=== PATIENT | female | born 1950 | race Caucasian/White ===

== ENCOUNTER 2021-06-20 08:00 | Emergency (ER) | payer MEDICARE | END 2021-06-20 08:55 | disposition home or self-care (01) | LOC: ERS 08:00 | DX: S61.213D Laceration without foreign body of left middle finger without damage to nail, subsequent encounter (principal); Z87.891 Personal history of nicotine dependence ==

== ENCOUNTER 2022-04-11 08:53 | Outpatient (CLI) | payer MEDICARE | END 2022-04-11 08:54 | disposition home or self-care (01) | LOC: BICMAMMO 08:53 | PROVIDERS: ATTEND Student in an Organized Health Care Education/Training Program | DX: Z12.31 Encounter for screening mammogram for malignant neoplasm of breast (principal); Z13.820 Encounter for screening for osteoporosis; Z78.0 Asymptomatic menopausal state | CPT/HCPCS: 77063; 77067; 77080 ==

== ENCOUNTER 2023-05-31 09:50 | Outpatient (CLI) | payer MEDICARE | END 2023-05-31 09:51 | disposition home or self-care (01) | LOC: BICMAMMO 09:50 | PROVIDERS: ATTEND Student in an Organized Health Care Education/Training Program | DX: Z12.31 Encounter for screening mammogram for malignant neoplasm of breast (principal) | CPT/HCPCS: 77063; 77067 ==

== ENCOUNTER 2025-05-28 07:48 | Outpatient (CLI) | payer MEDICARE | END 2025-05-28 07:49 | disposition home or self-care (01) | LOC: BICMAMMO 07:48 | PROVIDERS: ATTEND Family Medicine | DX: Z78.0 Asymptomatic menopausal state (principal) | CPT/HCPCS: 77080 ==